=== PATIENT | male | born 1980 | race Caucasian/White ===

== ENCOUNTER 2021-09-19 17:20 | Emergency (ER) | payer OTHER ==
[~2021-09-19] VITALS: Ht 185.4 cm; Wt 102.0 kg
[2021-09-19 17:30] VITALS: BP 119/68
[2021-09-19] MEDS ORDERED: CYCL5TAB PO (17:53)
--- NOTE | 2021-09-19 17:53 | PHYS DOC ---
General Adult HPI: HPI: Patient is a 41-year-old male who presents to the emergency department for right hamstring pain. Patient reports that he was sprinting when he felt a pop in his right hamstring. He rates his pain 3 out of 10 at rest and 7 out of 10 with movement. He reports he is able to bear weight and ambulate. No treatment p rior to arrival. Patient denies any decreased range of motion, joint pain or decrease sensation in his extremity. Review of Systems: Review of Systems: Musculoskeletal: See HPI Integument: See HPI Neurologic: See HPI Physical Exam: PE: Constitutional: Well developed, well nourished, no acute distress, non-toxic appearance. [] HENT: Normocephalic, atraumatic, bilateral external ears normal, oropharynx moist, no oral exudates, nose normal. [] Eyes: PERRL, EOMI, conjunctiva normal, no discharge. [] Neck: Normal range of motion, no stridor Cardiovascular normal peripheral perfusion Lungs & Thorax: Normal work of breathing, no tachypnea Abdomen: Soft and flat Skin: Warm, dry, no erythema, no rash. [] Back: No tenderness, normal range of motion Extremities: No tenderness, no cyanosis, no clubbing, ROM intact, no edema. [] Right lower extremity: No obvious deformity, no tenderness to joints of right leg, no ecchymosis or swelling to posterior right thigh, range of motion intact, neuro intact Neurologic: Alert and oriented X 3, normal motor function, normal sensory function, no focal deficits noted. [] Psychologic: Affect normal, judgement normal, mood normal. [] EKG: EKG: [] Radiology/Procedures: Radiology/Procedures: [] Heart Score: C/O Chest Pain: N/A Risk Factors: Risk Factors: DM, Current or recent (<one month) smoker, HTN, HLP, family history of CAD, obesity. Risk Scores: Score 0 - 3: 2.5% MACE over next 6 weeks - Discharge Home Score 4 - 6: 20.3% MACE over next 6 weeks - Admit for Clinical Observation Score 7 - 10: 72.7% MACE over next 6 weeks - Early Invasive Strategies Course & Med Decision Making: Course & Med Decision Making Pertinent Labs and Imaging studies reviewed. (See chart for details) Patient presents to the emergency department for right hamstring pain after he was sprinting and felt a pop. Patient is able to bear weight and ambulate. Range of motion is intact and he is neurovascularly intact. Patient treated with anti-inflammatory medications and muscle relaxer. He is advised to take anti-inflammatory medications at home and he will be discharged home with a m uscle relaxer. I discussed with patient all findings and diagnostic testing as well as the need to follow-up with PCP for further evaluation and treatment or return to the ER if any new or worsening symptoms. Strict return precautions were also discussed at length. Patient voiced understanding and agreement with the plan. Patient is hemodynamically stable at the time of disposition. Dragon Disclaimer: InSphero Disclaimer: This electronic medical record was generated, in whole or in part, using a voice recognition dictation system. Departure Departure: Impression: Primary Impression: Hamstring muscle strain Qualified Codes: S76.311A - Strain of muscle, fascia and tendon of the posterior muscle group at thigh level, right thigh, initial encounter Disposition: HOME / SELF CARE / HOMELESS Condition: GOOD Patient Instructions: Muscle Strain Additional Instructions: You are seen in the emergency department today for right hamstring pain. It is likely that you did pull a partially tear in your hamstring. You will need to follow-up with your primary care provider to set up an outpatient MRI. You are being discharged home with a muscle relaxer. This medication may cause sedation so do not take when you need to be alert, driving a vehicle or with alcohol. Uses in combination with anti-inflammatory medications. Your primary care provider within 2 days for recheck. Return to the emergency department if you develop injuries, inability to bear weight or walk, decreased range of motion or decreased sensation in your extremity. Scripts Cyclobenzaprine Hcl (CYCLOBENZAPRINE HCL) 5 Mg Tablet 1 TAB PO TID for muscle strain for 7 Days, #21 TAB 0 Refills Prov: DANY RICHARDS APRN 09/19/21 DANY RICHARDS APRN September 19, 2021 17:53
[2021-09-19] MEDS ORDERED: ORPHENADRINE CITRATE 60 MG/2 ML VIAL. IM ONE (18:00)
[2021-09-19] MEDS ORDERED: KETOROLAC 60 MG/2 ML VIAL. IM ONE (18:00)
== END 2021-09-19 18:18 | disposition home or self-care (01) ==
LOC: ER 17:20
DX: S76.311A Strain of muscle, fascia and tendon of the posterior muscle group at thigh level, right thigh, initial encounter (principal); X50.9XXA Other and unspecified overexertion or strenuous movements or postures, initial encounter; Y93.89 Activity, other specified; Y92.89 Other specified places as the place of occurrence of the external cause; Y99.8 Other external cause status
CPT/HCPCS: 96372; 99284; J1885; J2360